=== PATIENT | male | born 2000 | race American Indian/Alaskan Native ===

== ENCOUNTER 2020-06-30 17:12 | Emergency (ER) | payer SELFPAY ==
[2020-06-30 17:52] VITALS: BP 121/69
[2020-06-30 18:21] LABS: Bilirubin,Urine NEG (Negative); Blood,Urine NEG (Negative); Color,Urine Yellow (Yellow); Protein,Urine <15 mg/dL mg/dL (Negative); RBC,Urine < 1.0 /HPF (0.0-6.0); Urobilinogen,Urine < 2.0 mg/dL (<2.0); WBC,Urine < 1.0 /HPF (0.0-6.0)
--- NOTE | 2020-06-30 18:48 | Emergency Department Report ---
Chief Complaint: Urogenital-Male Stated Complaint: POSS STD Time Seen by Provider: 06/30/20 18:27 - HPI History of Present Illness: 20-year-old -[place] male presents to the emergency room stating that he is having herpes breakout that he is been having for the last few months. Patient states that he was on acyclovir but he gave him acute kidney injury. Patient denies any penile discharge no fever no chills. 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 MSE screening note: Focused history and physical exam performed. Due to findings the following was ordered: 20-year-old -[place] male presents to the emergency room stating that he is having herpes breakout that he is been having for the last few months. Patient states that he was on acyclovir but he gave him acute kidney injury. Patient denies any penile discharge no fever no chills. Patient will be referred to infectious disease clinic for further evaluation and treatment since patient reports that he has had ARIANA with acyclovir reading up Rosie acyclovir has the same contraindication. ED Disposition for MSE Disposition: Z-07 MED SCREENING EXAM-LEFT Is pt being admited?: No Does the pt Need Aspirin: No Condition: Stable Additional Instructions: It is important you follow-up with an infectious disease provider for evaluation and treatment of your genital herpes. Referrals: ZAID GUZMAN MD [Staff Physician] - 3-5 Days
== END 2020-06-30 19:35 | disposition left against medical advice (07) ==
LOC: ED 17:12
DX: B00.9 Herpesviral infection, unspecified (principal); Z53.21 Procedure and treatment not carried out due to patient leaving prior to being seen by health care provider
CPT/HCPCS: 81001